=== PATIENT | female | born 1960 | race Caucasian/White ===

== ENCOUNTER → 2022-06-27 10:58 | Outpatient (BNVA) | payer BC, SELFPAY | PROVIDERS: Visit Provider Student in an Organized Health Care Education/Training Program | DX: S83.242A Other tear of medial meniscus, current injury, left knee, initial encounter (principal); X58.XXXA Exposure to other specified factors, initial encounter | CPT/HCPCS: 73560; 73565 ==

== ENCOUNTER 2022-08-09 14:25 | Outpatient (CLI) | payer BC, SELFPAY ==
--- NOTE | 2022-08-09 14:30 | MR_ITS ---
WS: [id number] MRI LEFT KNEE HISTORY: Medial LEFT knee pain. Weakness and limited range of motion. COMPARISON: Radiographs 06/27/2022 Anterior cruciate ligament: Abnormal signal involving the mid ACL. There is increased T2 signal and l oss of the normal fiber signal. The normal orientation of the ACL is still present. I suspect there i s mucoid degeneration and possible partial tear. No full-thickness tear. Posterior cruciate ligament: Intact. Medial collateral ligament: Intact. Posterior lateral corner structures: Intact. Medial menisci: Horizontal tear in the posterior horn extends to the inferior articular surface and t he posterior meniscus. There is additional increased T2 signal extending towards the meniscal root. F raying and blunting of the meniscus towards the intercondylar notch. In the body of the medial menisc us there is increased signal which extends inferior to the tibial plateau adjacent to the MCL. This d oes appear to be in an additional tear involving the meniscus which extends inferior from the joint l ine. Lateral meniscus: Intact. Normal signal, size and shape. Extensor mechanism: Distal quadriceps tendon and patellar tendons are intact. Fluid and soft tissue: Small suprapatellar joint effusion. Small amount of soft tissue edema along th e medial knee. Small Sherman's cyst. Osseous and articular structures: Patellofemoral compartment: Normal. Medial compartment: Subchondral marrow edema involving the medial femoral condyle. Lateral compartment: Negative. MR/MR knee LT wo con* [id number] IMPRESSION: 1. Complex tear posterior horn medial meniscus. There is a horizontal tear whi ch extends to the inferior articular surface along with significant fraying osmin ng the surfaces with abnormal signal extending into the meniscal root. 2. Additional tear extends into the body of the medial meniscus and meniscus e xtrudes inferior from the joint line adjacent to the MCL. This is probably a co mplex tear and in part may be a vertical tear. 3. Small joint effusion. 4. Small amount of marrow edema in the medial femoral condyle. 5. Increased signal in the ACL with loss of the normal fibers although the zeinab entation is normal. Mucoid degeneration and possible partial tear. No full-thic kness tear. 6. Small Sherman's cyst.
== END 2022-08-09 14:26 | disposition home or self-care (01) ==
PROVIDERS: Visit Provider Student in an Organized Health Care Education/Training Program
DX: R53.1 Weakness (principal); S83.232A Complex tear of medial meniscus, current injury, left knee, initial encounter; M71.22 Synovial cyst of popliteal space [Baker], left knee; X58.XXXA Exposure to other specified factors, initial encounter; M25.462 Effusion, left knee; R60.0 Localized edema
CPT/HCPCS: 73721

== ENCOUNTER 2022-09-24 06:12 | Day surgery (SDC) | payer BC, SELFPAY ==
[2022-09-24] VITALS (10 sets, daily range): BP systolic 102–137; BP diastolic 68–77; PULSE 67–87; RESP 16–18; TEMP 36.3–36.8; O2SAT 92–98
[2022-09-24] MEDS: acetaminophen 1,000 MG/100 ML PIGGYBACK 400 MG IV (06:44)
[2022-09-24] MEDS: ketorolac 30 mg/mL INJ IVP (06:45)
[2022-09-24] MEDS: sodium chloride 0.9% 1,000 ML 30 ML IV (06:45)
--- NOTE | 2022-09-24 08:15 | P.HP_ITS ---
Same Day Surgery H&P Indication for Procedure/HPI DATE OF PROCEDURE: September 24, 2022 CHIEF COMPLAINT/INDICATIONFOR SURGICAL PROCEDURE: Left knee pain, left knee medial meniscus tear PREOP DIAGNOSIS: Left knee medial meniscus tear PLANNED PROCEDURE: Operation Date: 09/24/22 08:15 Proposed Procedures p Left knee diagnostic and surgical anterior cruciate ligament debridement 71733, partial medical menisectomy versus repair 08274,S83.242A(Left) - Bolivar Cha DO s partial medical menisectomy versus repair 56357(Left) - Bolivar Cha DO Medications/Allergies* Home Medications Medication Instructions Recorded Confirmed Type No Known Home Medications 06/27/22 09/23/22 History Allergies/Adverse Reactions Allergy/AdvReac Type Severity Reaction Status Date / Time Penicillins Allergy Mild rash Verified 09/24/22 06:35 Current Medications: Generic Name Dose Route Start Last Admin Trade Name Freq PRN Reason Stop Dose Admin Sodium Chloride 1,000 mls @ 30 mls/hr 09/24/22 06:30 09/24/22 06:45 Sodium Chloride 0.9% IV 09/25/22 06:29 30 mls/hr .Q24H LESLY Administration Pertinent History/Comorbid Conditions* Medical History (Updated 07/01/22 @ 22:35 by Bolivar Cha DO) Tear of medial meniscus of left knee Pertinent Exam Findings alert, oriented x 3, operative site marked and procedure specific exam findings Left knee examination:there is 5/5 flexion and extension of the knees against resistance.? There is discrete tenderness to palpation over the medial compartment of the left knee. There is pain that is reproduced with McMurrays test, but no palpable click. There is no tenderness with patella mobilization or over the lateral compartment. There is a negative patella grind maneuver. There is a negative lachmans test and both knees are stable to varus and valgus stress testing. There is a negative anterior and posterior drawer. There is no significant varus or valgus malalignment. Recommendations Surgery/Procedure today Other Plans: Plan to proceed with left knee diagnostic and surgical arthroscopy, ACL debridement, partial medial meniscectomy versus root repair.? Patient understands risk benefits complication alternatives surgical nonsurgical aman tment options. Understanding risk with surgery through shared decision making she elects proceed with surgical intervention. All questions answered. Coding Level of Care Code Acute Code for [facility]
--- NOTE | 2022-09-24 08:18 | ANES.PREANE2 ---
Pre-Anesthetic Assessment Height/Weight: Height 1.6 m Weight 63.503 kg Temp Pulse Resp BP Pulse Ox O2 Del Method 97.4 F L 67 16 137/73 95 09/24/22 06:29 09/24/22 06:29 09/24/22 06:29 09/24/22 06:29 09/24/22 06:29 09/24/22 06:39 Preop Diagnosis: Left knee medial meniscus tear Operation Date: 09/24/22 08:15 Proposed Procedures p Left knee diagnostic and surgical anterior cruciate ligament debridement 62309, partial medical menisectomy versus repair 25707,S83.242A(Left) - Bolivar Cha DO s partial medical menisectomy versus repair 83217(Left) - Bolivar Cha DO Familial anesthetic complications: none Was Beta Sophie taken within 24 hours: N/A Was Clonidine taken within 24 hours: N/A Last intake: Intake Last Liquid Date 09/23/22 Last Liquid Time 21:00 Last Solid Date 09/23/22 Last Solid Time 21:00 Social No alcohol and No tobacco Exam alert, oriented x 3, clear to auscultation bilaterally and regular rate & rhythm Airway Submandibular: within normal limits Cervical ROM: within normal limits Mallampati: Class II Dentition: full History/ROS No significant history except as noted Anesthetic Plan ASA status: 1 Anesthesia: General and Regional (specify below) (adductor blk) Medications/Allergies Home Medications Medication Instructions Recorded Confirmed Last Taken Type No Known Home Medications 06/27/22 09/23/22 Unknown History Allergies Allergy/AdvReac Type Severity Reaction Status Date / Time Penicillins Allergy Mild rash Verified 09/24/22 06:35 Current Medications Generic Name Dose Route Start Last Admin Trade Name Freq PRN Reason Stop Dose Admin Sodium Chloride 1,000 mls @ 30 mls/hr 09/24/22 06:30 09/24/22 06:45 Sodium Chloride 0.9% IV 09/25/22 06:29 30 mls/hr .Q24H LESLY Administration PFSH Anesthesia Medical History (Updated 07/01/22 @ 22:35 by Bolivar Cha DO) Tear of medial meniscus of left knee Data Anesthesia Cardiac Studies: No Data to Display
[2022-09-24] MEDS: clindamycin 600 MG/50 ML PREMIX 100 MG IV (08:40)
[2022-09-24] MEDS: lidocaine-epi 2% 20 mL INJ INJECTION ×2 (09:00→09:27)
--- NOTE | 2022-09-24 09:04 | ANES.PROC ---
Anesthesia Procedures Procedure/Date: 09/24/22 Nerve Block ^: Nerve Block 1: Main Anesthesia: general anesthesia Time Out Performed: Yes Consent: requested by attending/covering physician, from patient, risks and benefits reviewed and patient agrees to proceed Nerve block location: adductor canal (left) Anesthesia monitors applied: pulse oximetry, EKG, BP cuff and oxygen Nerve block position: supine Anesthetic Used: ropivicaine 0.5% Amount of anesthesia used (mL): 20 Ultrasound used to: recognize landmarks Nerve Stimulator Used?: No Interscalene/Femoral BLK: 4 stimuplex 21 g needle used for position and inplane approach Injection: neg aspiration of heme Patient Tolerated Procedure: well Complications: none
[2022-09-24] MEDS: EPINEPHrine 1 mg/mL INJ 2 MG XX (09:08)
--- NOTE | 2022-09-24 09:36 | PC.NURSE ---
Pt arrived to PACU, awake, dressing to left knee C/D/I, left toes p/w/d, cap refill <3 seconds, able to wiggle toes. Ice pack applied.
--- NOTE | 2022-09-24 09:41 | P.OP_ITS ---
Brief Operative Note Date of procedure: 09/24/22 Pre-op diagnosis: Left knee medial meniscus tear ACL degeneration/tearing, cho ndromalacia Post-op diagnosis: same (Extensive synovitis) Procedure Done: Left knee diagnostic and surgical arthroscopy with partial medial meniscectomy left knee diagnostic and surgical arthroscopy with ACL debridement Left knee diagnostic and surgical arthroscopy with extensive synovectomy of medial lateral patellofemoral compartments Surgeon: Bolivar Cha Estimated blood loss (mL): 1 Complications: None Post-op Plan: Patient taken to PACU in stable condition patient recovering well. Will receive appropriate discharge structure as well as pain medication and DVT prophylaxis postoperatively. We will follow-up with me in the office in 2 weeks. Patient will be weightbearing as tolerated to the left lower extremity all questions answered. Condition: stable Disposition: same day Coding Level of Care Code Acute Code for Ishaan Rueda
--- NOTE | 2022-09-24 09:44 | P.OP_ITS ---
Operative Report Date of procedure: September 24, 2022 Pre-op diagnosis: Preop Diagnosis Left knee medial meniscus tear Post-op diagnosis: Left knee medial meniscus tear, ACL degeneration fraying/tearing, extensive synovitis, chondromalacia Procedure done: Left knee diagnostic and surgical arthroscopy with partial medial meniscectomy left knee diagnostic and surgical arthroscopy with ACL debridement Left knee diagnostic and surgical arthroscopy with extensive synovectomy of medial lateral patellofemoral compartments Surgeon: Bolivar Cha DO Estimated blood loss: 1 mL No tourniquet was used IV fluids: 700 mL Complications: None Findings: See operative report narrative Condition: stable Disposition: same day Procedure: Brief History: Patient presented to my office in the outpatient setting for evaluation of left knee pain.? She presented with an MRI findings consistent with below ? MR/MR knee LT wo con* [id number] IMPRESSION: ? 1.? Complex tear posterior horn medial meniscus. There is a horizontal tear which extends to the inferior articular surface along with significant fraying along the surfaces with abnormal signal extending into the meniscal root. 2.? Additional tear extends into the body of the medial meniscus and meniscus extrudes inferior from the joint line adjacent to the MCL. This is probably a complex tear and in part may be a vertical tear. 3.? Small joint effusion. 4.? Small amount of marrow edema in the medial femoral condyle. 5.? Increased signal in the ACL with loss of the normal fibers although the orientation is normal. Mucoid degeneration and possible partial tear. No full- thickness tear. 6.? Small Sherman's cyst. ? We talked in detail about her treatment options as far as nonoperative and operative intervention.? We talked about the risk benefits complication alternatives to each treatment option.? Ultimately given the concern for the extension of the meniscal tear into the meniscal root and goals of trying to preserve cartilage and better function of meniscus we talked about surgical intervention of the left knee diagnostic and surgical arthroscopy with partial medial meniscectomy versus repair, chondroplasty, possible debridement ACL? Understanding the risks with surgery this point time she elects proceed.? All questions answered. Procedure: Patient seen and evaluated in the preoperative holding area.? Consent was reviewed and signed with patient.? Correct extremity was then marked.? Patient seen evaluated Anesthesia Department once cleared for surgery patient was taken back to the operative suite.? Patient was transported onto the OR table in supine position.? All bony prominences well-padded patient was appropriate secured to the bed.? Once appropriately anesthetized a nonsterile tourniquet was applied to the left thigh.? The left lower extremity was then prepped and draped in standard orthopedic fashion.? Final timeout performed.? Patient received appropriate preoperative antibiotics. Patient received local anesthetic of lidocaine with epinephrine into the joint as well as around the portal sites.? No tourniquet was inflated during this case. A standard 2 portal vertical incision diagnostic and surgical arthroscopy of the left knee was performed in standard fashion.? Small stab incision made in the inferolateral portal introduced trocar and arthroscope into the suprapatellar pouch.? Suprapatellar pouch was subsequently visualized and found to have significant synovitis but no loose bodies.? Patient had noticeable significant infrapatellar fat pad and thickening hypertrophic within the patellofemoral compartment. ?The medial gutter was free of loose bodies I then introduced the arthroscope into the medial compartment.? Within the medial compartment I then established my inferior medial working portal utilizing spinal needle outside in technique.? Once established I then visualized our articular cartilage of the medial compartment with a valgus stress.? 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 Next I inspected the meni scus.? With an arthroscopic probe was utilized to visual? all aspects of the meniscus.? Meniscal root was found to be intact however patient was found to have a complex flap tear of the posterior horn of the medial meniscus.? Given this would not be a good candidate for repair I subsequently utilizing basket forceps as well as arthroscopic shaver completed a partial medial meniscectomy to stable meniscal tissue.? I then utilized a thermal wand to anneal the edges to complete my partial medial meniscectomy. Next a introduced the arthroscope to the intercondylar notch.? PCL was intact with partial tearing of the ACL which was subsequently debrided with arthroscopic shaver. Patient had significant thickening of the infrapatellar fat pad spanning into the medial and lateral compartments.? I then performed an extensive synovectomy with the arthroscopic shaver of the patellofemoral medial and lateral compartments as well as the intercondylar notch. Advance the scope into the retrocruciate space and no loose bodies were found. Next I introduced the arthroscope into the lateral compartment the lateral compartment was found to have grade II chondromalacia throughout.? The meniscus was inspected and found to be intact with no tear.? Next of the arthroscope was placed into the lateral gutter and this was free of loose bodies.? Finally I reintroduced the arthroscope into the patellofemoral compartment.? The patellofemoral was found to have grade 1-2 chondromalacia.?? Next I used the arthroscopic shaver to complete my extensive synovectomy and debridement of the infrapatellar thickened and hypertrophic fat pad to have complete space of the patellofemoral compartment on the medial aspect.? Next I then switched the arthroscope to the medial working portal and visualized the extent extensive synovitis laterally and then introduced the arthroscopic shaver and completed my synovectomy.? This completed patient's diagnostic and surgical arthroscopy.? All fluid was suctioned from the joint.? Once again hemostasis was satisfactory.? All instruments were withdrawn.? Portal sites were closed with interrupted nylon suture.? Dressed with Xeroform 4 x 4's ABD Curlex and Mikal wrap.? Patient was then subsequently awakened from anesthesia and taken to PACU in stable condition. Disposition: Patient taken to PACU in stable condition recovering well.? Will receive appropriate discharge structure as well as pain medication postoperatively as well as daily aspirin for DVT prophylaxis.? We will have patient follow-up with us in the office in 2 weeks.? We will weightbearing as tolerated to the left lower extremity.? Patient understands and agrees with current plan.? All questions answered.
--- NOTE | 2022-09-24 09:44 | PM.PACU ---
PACU note Narrative: Patient taken to PACU in stable condition recovering well. Distal pulse palpable. Patient's toes warm well perfused. Compartment soft compressible. Able to wiggle toes plantarflex and dorsiflex ankle. Dressing on in place clean dry and intact Exam: awake Disposition: discharged
[2022-09-24] MEDS: ondansetron 2 mg/ML SDV 2 mL 4 MG IVP ×3 (09:51→10:35)
[2022-09-24] MEDS: diphenhydrAMINE 50 mg/mL SDV 1mL 12.5 MG IVP (10:37)
--- NOTE | 2022-09-24 14:03 | ANE.PACU2 ---
Inpatient post-anesthesia follow up: Airway intact: Yes Vital signs: Temperature 97.8 F Pulse Rate 77 Respiratory Rate 16 Blood Pressure 122/77 Pulse Oximetry 98 Oxygen Delivery Me thod Room Air Oxygen Flow Rate Fraction of Inspir ed Oxygen Hydration adequate: Yes Nausea and vomiting: Yes Pain level: 2 Mental status: Baseline
== END 2022-09-24 11:16 | disposition home or self-care (01) ==
PROVIDERS: Visit Provider Student in an Organized Health Care Education/Training Program
PROC: (CPT 29870; principal; 2022-09-24 08:05)
PROC: (CPT 29881; 2022-09-24 08:05)
DX: S83.242A Other tear of medial meniscus, current injury, left knee, initial encounter (principal); X58.XXXA Exposure to other specified factors, initial encounter; M94.262 Chondromalacia, left knee
CPT/HCPCS: 29881; 29888; J0131; J0171; J1100; J1200; J1885; J2405; J2704; J2795; J3010; J3490; J7030

== ENCOUNTER 2022-10-15 06:00 | Outpatient (RCR) | payer BC, SELFPAY | END 2022-10-30 23:59 | disposition home or self-care (01) | LOC: SPT 06:00 | PROVIDERS: Visit Provider Student in an Organized Health Care Education/Training Program | DX: Z47.89 Encounter for other orthopedic aftercare (principal) | CPT/HCPCS: 97110; 97161 ==